=== PATIENT | female | born 1985 | race Caucasian/White ===

== ENCOUNTER 2021-09-27 16:44 | Emergency (ER) | payer SELFPAY ==
[2021-09-27] MEDS ORDERED: Ketorolac 30 MG/ML SDV IM ONE (17:13)
== END 2021-09-27 18:00 | disposition home or self-care (01) ==
LOC: FB.ED 16:44
DX: M54.42 Lumbago with sciatica, left side (principal); M26.602 Left temporomandibular joint disorder, unspecified; Z88.6 Allergy status to analgesic agent
CPT/HCPCS: 96372; 99282; J1885